=== PATIENT | female | born 1930 | race Hispanic/Latino ===

== ENCOUNTER 2018-01-12 19:07 | Observation (INO) | payer OTHER ==
[~2018-01-12] VITALS: Ht 149.9 cm; Wt 55.5 kg
[2018-01-12 19:46] LABS: HEMATOCRIT 35.1 % (36.0-46.0); HEMOGLOBIN 12.2 G/DL (11.9-15.5); MCH 31.6 PG (29.0-34.0); MCHC 34.8 G/DL (30.0-36.0); MCV 90.9 FL (83-99); PLATELET COUNT 176 K/uL (156-360); RBC DIS.WIDTH-CV 12.3 % (11.8-14.6); RBC DIS.WIDTH-SD 40.6 % (39-53); RED BLOOD COUNT 3.86 M/uL (3.80-5.20); WHITE BLOOD COUNT 5.5 K/uL (4.1-10.2)
[2018-01-12 19:57] LABS: CHLORIDE 107 mEq/L (99-109); POTASSIUM 4.3 mEq/L (3.7-5.4); SODIUM 145 mEq/L (136-147)
[2018-01-12 19:59] LABS: GLUCOSE 106 mg/dL (70-99)
[2018-01-12 20:03] LABS: CREATININE 0.9 mg/dL (0.6-1.3); GFR ESTIMATE (CALCULATED) > 59 mL/min/
[2018-01-12 20:04] LABS: UREA NITROGEN (BUN) 27 mg/dL (9-23)
[2018-01-12 20:07] LABS: TROP-I INTERPRETATION NEGATIVE; TROPONIN-I < 0.01 ng/mL (0.0-0.30)
[2018-01-12] MEDS ORDERED: PREDNISOLONE AC15 ML BOTH EYES (22:45)
[2018-01-12] MEDS ORDERED: FLONASE16 G1 BOTH NARES (22:48)
[2018-01-12] MEDS ORDERED: DICLOFENAC SODI25 MG PO (22:48)
[2018-01-12] MEDS ORDERED: IRBESARTAN75 MG PO (22:49)
[2018-01-12] MEDS ORDERED: TIZANIDINE HCL2 MG PO (22:50)
[2018-01-12] MEDS ORDERED: CLARITIN,ALAVAR10 MG PO (22:52)
[2018-01-12] MEDS ORDERED: BENADRYL ALLERG25 MG PO (22:54)
[2018-01-12] MEDS ORDERED: TUSSIN CF COUG118 ML PO (22:55)
[2018-01-13 00:46] VITALS: BP 182/88
[2018-01-13 04:47] VITALS: BP 148/74
[2018-01-13 07:01] LABS: TROP-I INTERPRETATION NEGATIVE; TROPONIN-I 0.01 ng/mL (0.0-0.30)
[2018-01-13 08:30] VITALS: BP 167/81
[2018-01-13] MEDS ORDERED: ASPIRIN81 M2 PO (10:45)
[2018-01-13 11:38] VITALS: BP 140/78
[2018-01-13 13:21] LABS: TROP-I INTERPRETATION NEGATIVE; TROPONIN-I < 0.01 ng/mL (0.0-0.30)
== END 2018-01-13 18:12 | disposition home or self-care (01) ==
LOC: EME 19:07 → EDOF 23:06 → 4SOUTH 23:06 → ENRESERV 23:09 → 4SOUTH 01-13 00:35
PROVIDERS: Physician Assistant
DX: R07.9 Chest pain, unspecified (principal); I10 Essential (primary) hypertension; M19.90 Unspecified osteoarthritis, unspecified site; I44.0 Atrioventricular block, first degree; F41.9 Anxiety disorder, unspecified; Z96.652 Presence of left artificial knee joint; Z90.49 Acquired absence of other specified parts of digestive tract; Z90.710 Acquired absence of both cervix and uterus; Z87.891 Personal history of nicotine dependence; Z88.5 Allergy status to narcotic agent; Z88.6 Allergy status to analgesic agent
CPT/HCPCS: 71046; 71250; 80048; 84484; 85027; 85379; 93005; 99281; 99285; G0378; J1644